=== PATIENT | female | born 1935 | race Caucasian/White ===

== ENCOUNTER → 2018-01-28 | Day surgery (SDC) | payer MEDICARE ==
[2018-01-23 09:30] VITALS: BMI 22.6
[~2018-01-28] MED LIST: Hydrocortisone Sod Succ/PF 100 mg/2 ml Vial IVP SCH; Hydrocortisone Sod Succ/PF 100 mg/2 ml Vial ONE; Iopamidol 370 76% 50 ML VIAL FS ONE; Lidocaine 1% (PF) 30 ML VIAL ONE
[2018-01-28 06:44] LABS: #Basophils 0.1 thou/uL (0.0-0.2); #Eosinphils 0.6 thou/uL (0.0-0.7); #Lymphocytes 1.9 thou/uL (1.20-3.40); #Monocytes 0.7 thou/uL (0.11-0.59); #Neutrophils 3.1 thou/uL (1.40-6.50); %Basophils 1.3 % (0.0-1.0); %Eosinophils 9.3 % (0.0-10.0); %Lymphocytes 29.6 % (21.0-51.0); %Monocytes 11.1 % (0.0-10.0); %Neutrophils 48.7 % (42.0-75.0); Hemoglobin 10.8 g/dL (12.0-16.0); Mean Corpuscular HGB CONC 34.6 g/dL (32.0-36.0); Mean Corpuscular Hemoglobin 32.5 pg (27.0-31.0); Mean Platelet Volume 7.3 fL (7.4-10.4); Platelet Count 189 thou/uL (130-400); RBC Distribution Width 12.4 % (11.5-14.5); Red Blood Cell (RBC) Count 3.31 mill/uL (4.20-5.40); White Blood Cell (WBC) Count 6.3 thou/uL (4.8-10.8)
[2018-01-28 06:57] LABS: Anion Gap 10 mmol/L (10-20); BUN (Urea Nitrogen) 25 mg/dL (9.8-20.1); Calc. Creatinine Clearance 48 mL/min (70-130); Calcium 8.8 mg/dL (7.8-10.44); Carbon Dioxide 25 mmol/L (23-31); Chloride 103 mmol/L (98-107); Estimated GFR-MDRD 64; Glucose 89 mg/dL (83-110); Potassium 4.2 mmol/L (3.5-5.1); Sodium 134 mmol/L (136-145)
--- NOTE | 2018-01-28 07:32 | OP ---
DATE OF PROCEDURE: 01/27/2018 PREOPERATIVE DIAGNOSIS: Right renal artery stenosis. POSTOPERATIVE DIAGNOSIS: Mild renal artery disease, bilaterally. PROCEDURE: Aortogram and selective right renal artery angiography. CONTRAST: 15 mL. FLUOROSCOPY: 0.8 minutes. PROCEDURE IN DETAIL: After adequate prepping and draping, a 1% lidocaine was used to infiltrate the right groin. Under ultrasound guidance, the right common femoral artery was punctured, wired 5-Frenc h dilator and sheath were placed. Contra catheter was then used for abdominal aortography, following which a [place] catheter was used to selectively cannulate the right renal artery. After completion of the studies, a sheath was removed. FINDINGS: Normal aorta with bilateral renal arteries, right renal artery, minimal disease less than 30% left renal artery, minimal disease less than 20% stenosis. The patient tolerated the procedure w ell.
== END ==
LOC: SDC 06:01
PROVIDERS: ATTEND Thoracic Surgery (Cardiothoracic Vascular Surgery)
DX: I70.1 Atherosclerosis of renal artery (principal); I10 Essential (primary) hypertension; E78.00 Pure hypercholesterolemia, unspecified; Z88.1 Allergy status to other antibiotic agents; Z88.8 Allergy status to other drugs, medicaments and biological substances; Z88.5 Allergy status to narcotic agent; Z98.890 Other specified postprocedural states
CPT/HCPCS: 36252; 75625; 76942; 80048; 85025; C1769; 36415; J1644; J1720; J2001

== ENCOUNTER 2018-04-02 10:44 | Outpatient (CLI) | payer MEDICARE ==
--- NOTE | 2018-04-02 11:39 | RAD ---
ABDOMEN TWO VIEWS CHEST ONE VIEW: History: Constipation, right lower quadrant pain. FINDINGS: Left ICD. Mild stable chronic interstitial lung disease. No acute process in the chest. There is some gas and fecal material throughout the colon without significantly abnormally dilated re ctum. No free intraperitoneal air. No overt calculus. IMPRESSION: Unremarkable abdomen two views chest one view. POS: H
== END 2018-04-02 10:45 | disposition home or self-care (01) ==
LOC: SCSRAD 10:44
PROVIDERS: ATTEND Internal Medicine Gastroenterology
DX: R10.31 Right lower quadrant pain (principal); K59.00 Constipation, unspecified
CPT/HCPCS: 74022

== ENCOUNTER 2019-02-26 13:38 | Outpatient (CLI) | payer MEDICARE ==
--- NOTE | 2019-02-26 15:47 | RAD ---
ABDOMEN ONE VIEW: 02/26/19 HISTORY: Constipation. FINDINGS/IMPRESSION: Comparison is made with the exam of 04/02/18. The bowel gas pattern is unremarkable. There is fecal material in the colon. There are degenerative c hanges in the spine. No suspicious calcifications are seen. POS: OFF
== END 2019-02-26 13:39 | disposition home or self-care (01) ==
LOC: BICRAD 13:38
PROVIDERS: ATTEND Internal Medicine Gastroenterology
DX: K59.09 Other constipation (principal); K57.30 Diverticulosis of large intestine without perforation or abscess without bleeding; M47.9 Spondylosis, unspecified
CPT/HCPCS: 74018

== ENCOUNTER 2021-05-31 14:17 | Outpatient (CLI) | payer MEDICARE, OTHER ==
[2021-05-31 19:20] LABS: SARS-CoV-2 NAA Rapid Test Not Detected (NotDetected)
== END 2021-05-31 14:18 | disposition home or self-care (01) ==
LOC: LABBT 14:17
PROVIDERS: ATTEND Family Medicine
DX: Z01.812 Encounter for preprocedural laboratory examination (principal); Z20.822 Contact with and (suspected) exposure to COVID-19
CPT/HCPCS: U0002

== ENCOUNTER 2021-06-01 10:53 | Outpatient (CLI) | payer MEDICARE, OTHER | END 2021-06-01 10:54 | disposition home or self-care (01) | PROVIDERS: ATTEND Psychiatry & Neurology Neurology | DX: R13.10 Dysphagia, unspecified (principal); G20 Parkinson's disease | CPT/HCPCS: 74230 ==